=== PATIENT | female | born 1930 | race Caucasian/White ===

== ENCOUNTER 2017-03-20 21:57 | Inpatient (IN) | payer MEDICARE, OTHER ==
[~2017-03-20] VITALS: Ht 154.9 cm; Wt 75.5 kg
[2017-03-20 22:03] VITALS: BP 177/114; PULSE 94; RESP 16; TEMP 97.5; O2SAT 95
[2017-03-20] MEDS ORDERED: WARF-23 PO (22:24)
[2017-03-20] MEDS ORDERED: METO50TA PO (22:24)
[2017-03-20] MEDS ORDERED: ASPI81CH CHEW (22:24)
[2017-03-20] MEDS ORDERED: FURO20TA PO (22:24)
[2017-03-20] MEDS ORDERED: LISI2.5T3 PO (22:24)
[2017-03-20] MEDS ORDERED: ATOR1TAB18 PO (22:24)
--- NOTE | 2017-03-20 22:53 | PD ---
HPI Chief Complaint: Lump, Cyst, Hernia Time Seen by Provider: 22:46 Travel History International Travel<30 days: No Contact w/Intl Traveler<30days: No Traveled to known affect area: No History of Present Illness HPI 86-year-old female presents to the emergency department by private transportation for complaint of left lower quadrant abdominal pain with lump. Patient has had one episode of vomiting. Patient seems to have nausea. Patient denies diarrhea. Patient recently on oral antibiotic for cyst behind her knee 3 weeks ago. Patient denies hematochezia. No bilious emesis coffee- ground emesis or hematemesis. Patient denies fever or chills. Patient's had normal urine output. Patient states noted lump since partially 3:15 PM today with persistent pain. No prior history of hernia. No recent injury or fall or strain. Patient rates pain as 9/10 in intensity. Prior appendectomy, CAD, SC, stent placement, hypertension, dyslipidemia, atrial fibrillation on warfarin therapy. Last dose of Coumadin therapy at 3 PM today as well as last food or oral intake around 3 PM today. PFSH Past Medical History Narrative Medical appendectomy, CAD, SC, stent placement, hypertension, dyslipidemia, atrial fibrillation on warfarin therapy. No tobacco use no alcohol use. Nursing notes reviewed Hx Anticoagulant Therapy: Yes Atrial Fibrillation: Yes Cardiovascular Problems: Yes (Afib, SC) High Cholesterol: Yes Diminished Hearing: No Hypertension: Yes Myocardial Infarction: Yes Tetanus Vaccination: Unknown Influenza Vaccination: No ?: Not Past Surgical History Appendectomy: Yes Cardiac Surgery: Yes (Stents) Other Surgery: Yes (ulcer) Social History Alcohol Use: No Tobacco Use: No Substance Use: No Allergies-Medications (Allergen,Severity, Reaction): Coded Allergies: No Known Allergies (Unverified , 03/20/17) Reported Meds & Prescriptions Reported Meds & Active Scripts Active Reported Metoprolol Tartrate 50 Mg Tab 50 Mg PO BID Warfarin 5 Mg Tab 5 Mg PO DAILY Furosemide 20 Mg Tab 20 Mg PO DAILY Lisinopril 2.5 Mg Tab 2.5 Mg PO DAILY Aspirin 81 Mg Chew 81 Mg CHEW DAILY Atorvastatin (Atorvastatin Calcium) 80 Mg Tab 80 Mg PO HS Review of Systems Except as stated in HPI: all other systems reviewed are Neg General / Constitutional: No: Fever, Chills HENT: No: Congestion Cardiovascular: No: Chest Pain or Discomfort Respiratory: No: Shortness of Breath Gastrointestinal: Positive: Nausea, Vomiting (x1), Abdominal Pain Genitourinary: No: Dysuria, Flank Pain Musculoskeletal: No: Myalgias, Arthralgias Skin: No Rash Neurologic: No: Weakness Psychiatric: No: Anxiety Endocrine: No: Heat Intolerance Hematologic/Lymphatic: No: Easy Bruising Physical Exam Narrative GENERAL: Well-developed elderly female in no acute distress no respiratory distress SKIN: Warm and dry. HEAD: Normocephalic. EYES: No scleral icterus. No injection or drainage. NECK: Supple, trachea midline. No JVD or lymphadenopathy. CARDIOVASCULAR: Regular rate and rhythm without murmurs, gallops, or rubs. RESPIRATORY: Breath sounds equal bilaterally. No accessory muscle use. GASTROINTESTINAL: Abdomen soft, tender left lower quadrant with palpable non- fixed mass, nondistended. MUSCULOSKELETAL: No cyanosis, or edema. BACK: Nontender without obvious deformity. No CVA tenderness. Data Data Last Documented VS Vital Signs Date Time Temp Pulse Resp B/P Pulse Ox O2 Delivery O2 Flow Rate FiO2 03/21/17 02:20 77 16 160/91 97 Nasal Cannula 2 03/20/17 22:03 97.5 Orders Complete Blood Count With Diff (03/20/17 22:46) Comprehensive Metabolic Panel (03/20/17 22:46) Lipase (03/20/17 22:46) Prothrombin Time / Inr (Pt) (03/20/17 22:46) Urinalysis - C+S If Indicated (03/20/17 22:46) Ct Abd/Pel W Iv Contrast(Rout) (03/20/17 22:46) Iv Access Insert/Monitor (03/20/17 22:46) Ecg Monitoring (03/20/17 22:46) Oximetry (03/20/17 22:46) Ondansetron Inj (Zofran Inj) (03/20/17 23:00) Sodium Chloride 0.9% Flush (Ns Flush) (03/20/17 23:00) Electrocardiogram (03/20/17 22:46) Chest, Single Ap (03/20/17 22:46) Morphine Inj (Morphine Inj) (03/20/17 23:00) Ice/Cold Pack (03/20/17 22:46) Iohexol 350 Inj (Omnipaque 350 Inj) (03/21/17 00:24) NPO (03/21/17 00:52) Type And Screen (03/21/17 00:53) Fresh Frozen Plasma (Ffp) (03/21/17 00:53) Blood Product Administration .UPON TRANSFUSION (03/21/17 00:53) Sodium Chlor 0.9% 250 Ml Inj (Ns 250 Ml (03/21/17 01:00) Lorazepam Inj (Ativan Inj) (03/21/17 01:45) Labs Laboratory Tests Test 03/20/17 03/21/17 03/21/17 23:08 01:10 01:35 White Blood Count 9.1 TH/MM3 Red Blood Count 4.32 MIL/MM3 Hemoglobin 12.5 GM/DL Hematocrit 36.8 % Mean Corpuscular Volume 85.2 FL Mean Corpuscular Hemoglobin 28.9 PG Mean Corpuscular Hemoglobin 33.9 % Concent Red Cell Distribution Width 15.7 % Platelet Count 251 TH/MM3 Mean Platelet Volume 7.6 FL Neutrophils (%) (Auto) 78.2 % Lymphocytes (%) (Auto) 15.7 % Monocytes (%) (Auto) 4.6 % Eosinophils (%) (Auto) 0.7 % Basophils (%) (Auto) 0.8 % Neutrophils # (Auto) 7.1 TH/MM3 Lymphocytes # (Auto) 1.4 TH/MM3 Monocytes # (Auto) 0.4 TH/MM3 Eosinophils # (Auto) 0.1 TH/MM3 Basophils # (Auto) 0.1 TH/MM3 CBC Comment DIFF FINAL Differential Comment Prothrombin Time 23.7 SEC Prothromb Time International 2.1 RATIO Ratio Sodium Level 141 MEQ/L Potassium Level 4.7 MEQ/L Chloride Level 108 MEQ/L Carbon Dioxide Level 23.5 MEQ/L Anion Gap 10 MEQ/L Blood Urea Nitrogen 27 MG/DL Creatinine 0.84 MG/DL Estimat Glomerular Filtration 64 ML/MIN Rate Random Glucose 171 MG/DL Calcium Level 9.0 MG/DL Total Bilirubin 0.9 MG/DL Aspartate Amino Transf 21 U/L (AST/SGOT) Alanine Aminotransferase 32 U/L (ALT/SGPT) Alkaline Phosphatase 126 U/L Total Protein 7.2 GM/DL Albumin 3.7 GM/DL Lipase 64 U/L Blood Type O POSITIVE O POSITIVE Antibody Screen NEGATIVE Blood Bank Comment MDM Medical Decision Making Medical Screen Exam Complete: Yes Emergency Medical Condition: Yes Medical Record Reviewed: Yes Interpretation(s) EKG: Atrial fibrillation rate [address] elevation or injury pattern change noted nonspecific ST-T wave changes noted Last Impressions Chest X-Ray 03/20/172245 Signed Impressions: Service Date/Time: Monday, March 20, 2017 23:10 - CONCLUSION: Mild compensated cardiomegaly and mild, chronic appearing interstitial lung disease. Umair Lama MD Abdomen/Pelvis CT 03/20/172245 Signed Impressions: Service Date/Time: February 00:04 - CONCLUSION: 1. Left inguinal hernia containing a short segment of small bowel and with associated acute obstruction. 2. Trace mesenteric edema/ascites, presumably reactive. 3. Fatty liver. 4. Panchamber enlargement of the heart. 5. Small pleural effusion of the visualized right lung base of uncertain age and etiology. 6. 2 cm benign cyst of the left kidney. Umair Lama MD CBC & BMP Diagram 03/20/17 23:08 Vital Signs Date Time Temp Pulse Resp B/P Pulse Ox O2 Delivery O2 Flow Rate FiO2 03/21/17 00:24 95 17 164/97 95 Nasal Cannula 2 03/20/17 23:34 94 Room Air 03/20/17 23:25 94 20 174/98 89 Room Air 03/20/17 22:03 97.5 94 16 177/114 95 Differential Diagnosis Abdominal pain, hernia, hematoma, abscess, diverticulitis, UTI Narrative Course Patient placed on cardiac monitor technician IV access obtained specimens collected and sent for resulting patient administered Zofran 4 mg IV and morphine sulfate 3 mg IV ice pack applied to the area of soft tissue swelling Specimens collected and sent for resulting Attempt at reducing mass consistent with left inguinal hernia unsuccessful patient placed in Trendelenburg ice pack applied and again after pain medication gentle steady pressure applied to try to reduce the hernia; this procedure was also tried by colleague physician without success. CT abd/pel resulted and identified to be consistent with short segment of small bowel in the left inguinal hernia with surrounding soft tissue stranding consistent with edema acute obstruction; call placed to general surgeon regarding incarcerated left inguinal hernia; INR is therapeutic at 2.1 consistent with patient being Coumadin therapy; FFP ordered. Call placed to Gen surgeon -- re: incarcerated L inguinal hernia no transfer at this time to be notified once patient has received ordered FFP Patient administered Ativan 0.5 mg IV It is 3:15 AM and FFP has arrived from [facility] Physician Communication Physician Communication @ 1:[address] Shepherd--recall once FFP infused Diagnosis Primary Impression: Incarcerated left inguinal hernia Additional Impressions: Atrial fibrillation, chronic History of Coumadin therapy Admitting Information Admitting Physician Requests: Admit Zoila Miles MD Mar 20, 2017 22:52
[2017-03-20] MEDS ORDERED: ONDANSETRON HCL 4 MG/2 ML VIAL IVP ONE (23:00)
[2017-03-20] MEDS ORDERED: MORPHINE SULFATE 4 MG/ML INJ IV PUSH ONE (23:00)
[2017-03-20] MEDS ORDERED: SODIUM CHLORIDE 0.9% FLUSH 10 ML FLUSH IV FLUSH PRN (23:00)
[2017-03-20 23:16] LABS: AUTOMATED NEUTROPHIL # 7.1 TH/MM3 (1.8-7.7); BASOPHIL # 0.1 TH/MM3 (0-0.2); BASOPHIL % 0.8 % (0.0-2.0); EOSINOPHIL # 0.1 TH/MM3 (0-0.4); EOSINOPHIL % 0.7 % (0.0-4.0); HEMATOCRIT 36.8 % (35.0-46.0); LYMPH % 15.7 % (9.0-44.0); LYMPHOCYTE # 1.4 TH/MM3 (1.0-4.8); MEAN CELL VOLUME 85.2 FL (80.0-100.0); MEAN CORPUSCULAR HEMOGLOBIN 28.9 PG (27.0-34.0); MEAN CORPUSCULAR HGB CONC 33.9 % (32.0-36.0); MONO % 4.6 % (0.0-8.0); NEUT % 78.2 % (16.0-70.0); PLATELET COUNT 251 TH/MM3 (150-450); RED BLOOD COUNT 4.32 MIL/MM3 (4.00-5.30); RED CELL DISTRIBUTION WIDTH 15.7 % (11.6-17.2); WHITE BLOOD COUNT 9.1 TH/MM3 (4.0-11.0)
--- NOTE | 2017-03-20 23:17 | RADRPT ---
EXAM DATE/TIME: 03/20/2017 23:10 [facility] COMPARISON: No previous studies available for comparison. INDICATIONS : Short of breath. MEDICAL HISTORY : None. SURGICAL HISTORY : None. ENCOUNTER: Initial ACUITY: 1 day PAIN SCORE: 0/10 LOCATION: Bilateral chest FINDINGS: Mild, basilar predominant interstitial changes seen of both lungs, mainly appearing chronic. No acute pulmonary edema seen. No perceptible pleural effusion. No pneumothorax. There is mild cardiomegaly. CONCLUSION: Mild compensated cardiomegaly and mild, chronic appearing interstitial lung disease. Umair Lama MD on March 20, 2017 at 23:14 Board Certified Radiologist. This report was verified electronically.
[2017-03-20 23:23] LABS: CHLORIDE 108 MEQ/L (98-107); POTASSIUM 4.7 MEQ/L (3.5-5.1); SODIUM (NA) 141 MEQ/L (136-145)
[2017-03-20 23:24] LABS: HEMO FLAGS DIFF FINAL
[2017-03-20 23:25] VITALS: BP 174/98; PULSE 94; RESP 20; O2SAT 89
[2017-03-20 23:27] LABS: ANION GAP 10 MEQ/L (5-15); BICARBONATE 23.5 MEQ/L (21.0-32.0); BLOOD UREA NITROGEN 27 MG/DL (7-18); INTERNATIONAL NORMALIZED RATIO 2.1 RATIO; PROTHROMBIN TIME - PATIENT 23.7 SEC (9.8-11.6)
[2017-03-20 23:30] LABS: ALT (GPT) 32 U/L (10-53); AST (GOT) 21 U/L (15-37); GLOMERULAR FILTRATION RATE 64 ML/MIN (>89)
[2017-03-20 23:31] LABS: TOTAL BILIRUBIN ADULT 0.9 MG/DL (0.2-1.0)
[2017-03-20 23:33] LABS: ALKALINE PHOSPHATASE 126 U/L (45-117)
[2017-03-20 23:34] VITALS: O2SAT 94
[2017-03-21] VITALS (16 sets, daily range): BP systolic 108–170; BP diastolic 61–106; PULSE 63–95; RESP 16–18; TEMP 95.5–97.8; O2SAT 94–99
[2017-03-21] MEDS ORDERED: IOHEXOL 350 MG/ML 10 ML VIAL (for RAD DIAG) IV ONE (00:24)
--- NOTE | 2017-03-21 00:41 | RADRPT ---
EXAM DATE/TIME: 03/21/2017 00:04 [facility] COMPARISON: No previous studies available for comparison. INDICATIONS : Lower left abdomen pain with lump IV CONTRAST: 100 cc Omnipaque 350 (iohexol) IV ORAL CONTRAST: No oral contrast ingested. RADIATION DOSE: 17.83 CTDIvol (mGy) MEDICAL HISTORY : Hypertension. Myocardial infarction. SURGICAL HISTORY : Appendectomy. Hip sx. ENCOUNTER: Initial ACUITY: 1 day PAIN SCALE: 5/10 LOCATION: Left lower quadrant abdomen TECHNIQUE: Volumetric scanning of the abdomen and pelvis was performed. Using automated exposure control and ad justment of the mA and/or kV according to patient size, radiation dose was kept as low as reasonably achievable to obtain optimal diagnostic quality images. FINDINGS: There is a left inguinal hernia containing small bowel, probably at the level of the distal jejunum o r proximal ileum. There are loops of distended small bowel up stream of the hernia. Mild mesenteric e carrie/trace ascites. Liver is fatty infiltrated. No focal hepatic lesion. Spleen, pancreas and adrenal glands are normal. Right kidney is normal. Left kidney has a 2 cm cyst of the lower pole. Panchamber enlargement seen of the visualized heart. There is a small pleural effusion of the visuali zed right lung base. CONCLUSION: 1. Left inguinal hernia containing a short segment of small bowel and with associated acute obstructi on. 2. Trace mesenteric edema/ascites, presumably reactive. 3. Fatty liver. 4. Panchamber enlargement of the heart. 5. Small pleural effusion of the visualized right lung base of uncertain age and etiology. 6. 2 cm benign cyst of the left kidney. Umair Lama MD on March 21, 2017 at 0:36 Board Certified Radiologist. This report was verified electronically.
[2017-03-21] MEDS ORDERED: SODIUM CHLOR 0.9% 250 ML INJ 250 ML IV ONE (01:00)
[2017-03-21] MEDS ORDERED: LORazepam 2 MG/ML VIAL IV PUSH ONE (01:45)
[2017-03-21] MEDS ORDERED: SODIUM CHLORIDE 0.9% FLUSH 10 ML FLUSH IVF PRN (04:45)
[2017-03-21] MEDS ORDERED: ceFAZolin 2 GM PREMIX 50 ML IV PRN (05:15)
[2017-03-21] MEDS ORDERED: METRONIDAZOLE 500 MG/100 ML ISONTONIC SOLN IV PRN (05:15)
[2017-03-21 05:33] LABS: GLUCOSE,URINE NEG (NEG); KETONE, URINE NEG (NEG); NITRITE,URINE NEG (NEG)
[2017-03-21 05:47] LABS: BLOOD, URINE MOD (NEG)
[2017-03-21 05:48] LABS: SQUAMOUS EPITHELIAL CELL URINE 0-5 /hpf (0-5); URINE COLOR YELLOW (YELLW/STRAW)
[2017-03-21 05:49] LABS: COMMENT (UR) CULT NOT INDICATED; CULTURE IF INDICATED CULT NOT INDICATED
[2017-03-21] MEDS ORDERED: BUPIVACAINE HCL PF 0.25% 10 ML VIAL INFIL ONE (07:55)
[2017-03-21] MEDS ORDERED: LIDOCAINE 1%/EPINEPHrine 1:100,000 SOLN 20 ML VIAL ONE (08:03)
[2017-03-21] MEDS ORDERED: BUPIVACAINE/EPINEPHRINE 0.5% PF 30 ML VIAL ONE (08:05)
--- NOTE | 2017-03-21 08:46 | PD.OP ---
Operative Report Date of Surgery: Mar 21, 2017 Preoperative Diagnosis: incarcerated LIH, cutaneous horn LUE Postoperative Diagnosis: same Procedure: open repair incarcerated LIH , Vi repair. Excision cutaneous horn LUE 1cm diameter, single layer closure. Anesthesia: general Surgeon: Yury Shepherd Closing Specialist(s): Tori Bill Operation and Findings: incarcerated contents reduced after general anesthesia induced. Suture repair LIH performed. Cutaneous horn excised and sent to path. EBL less than 10 ml. Yury Shepherd MD Mar 21, 2017 08:46
[2017-03-21] MEDS ORDERED: MORPHINE SULFATE 8 MG/ML INJ IV PUSH PRN (09:00)
[2017-03-21] MEDS ORDERED: SODIUM CHLORIDE 0.9% FLUSH 10 ML FLUSH IV FLUSH PRN (09:00)
[2017-03-21] MEDS: DOCUSATE SODIUM 100 MG CAP PO SCH ×2 (09:00→10:34)
[2017-03-21] MEDS ORDERED: Post-op Orders (for Pharmacy) MISC XX ONE (09:00)
[2017-03-21] MEDS ORDERED: SODIUM CHLORIDE 0.9% FLUSH 10 ML FLUSH IV FLUSH SCH (09:00)
[2017-03-21] MEDS: LACTATED RINGER'S 1000 ML INJ 1,000 ML IV SCH ×2 (09:15→20:49)
[2017-03-21] MEDS: ACETAMINOPHEN 1000 MG/100 ML VIAL IV SCH ×3 (09:15→21:28)
[2017-03-21] MEDS ORDERED: PILL SPLITTER OTHER PRN (09:15)
--- NOTE | 2017-03-21 09:30 | MH ---
cc: REMA SHARMA M.D. DATE OF ADMISSION 03/21/2017 ADMITTING DIAGNOSIS 1. Incarcerated left inguinal hernia 2. Atrial fibrillation on anticoagulation 3. History of myocardial infarction. 4. Hypertension 5. Dyslipidemia 6. History of cardiac stents. 7. History of previous gastric ulcer surgery. 8. History of left hip fracture surgery. 9. History of right shoulder fracture surgery. BRIEF HISTORY This is an 86-year-old woman who developed abdominal pain in the lower abdomen after eating lunch yesterday. She laid down to see if we would resolve, it did not. She had no known prior history of hernia. She had had normal bowel and bladder function prior to this. She did develop nausea and one episode of emesis. There was no blood in the emesis. She present to the emergency department at [facility] [place] [facility]. She underwent evaluation and was found to have an incarcerated left inguinal hernia. Attempts to reduce were unsuccessful. Surgical intervention was required. The OR determined the best place for her to be was at [facility]. She was transported there for emergency surgery. She had incidentally discovered a left upper extremity cutaneous horn, she requested excision if there was no contraindication. She received 2 units of fresh frozen plasma prior to transport due to the INR of 2.1. ALLERGIES She denies any known drug allergies. PAST MEDICAL HISTORY Her medical history is significant for: 1. A history of coronary artery disease with OK in May of last year. 2. Stent placement 3. Hypertension 4. Dyslipidemia 5. Atrial fibrillation on Coumadin. 6. She has had previous gastric ulcer surgery many years ago. 7. She had appendectomy many years ago as well. 8. She has had left hip fracture surgery. 9. She has had right shoulder fracture surgery. 10. She was recently hospitalized three weeks ago up in [place], [place] due to her inability to walk. 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 SOCIAL HISTORY She is a nonsmoker. She had a history of a casual alcohol use. No abuse. She did receive blood transfusion when she had her gastric ulcer that was many years ago. She denies HIV or hepatitis risk factors otherwise. FAMILY HISTORY Significant for heart disease. She does have a son who had hernia surgery. MEDICATIONS Routine medications include: 1. Metoprolol 2. Warfarin 3. Lasix 4. Lisinopril 5. Aspirin 6. Atorvastatin REVIEW OF SYSTEMS She has fragile skin and bruises easily. She denies primary lung disorders. No asthma, bronchitis, or pneumonia. She does not have a house steward/stewardess here locally. She has one up in [place]. She denies known liver, kidney or female organ disorders. She denies a history of strokes or seizures, diabetes or thyroid gland problems. She was told she might have diabetes before her hip surgery, but she was tested with a hemoglobin A1c and that was negative. She does take Coumadin. PHYSICAL EXAM This is an elderly woman who was pleasant and cooperative with the exam. She is not in any extremis. VITAL SIGNS: Temperature is 97.8, pulse 81, respiratory rate 18, blood pressure 170/96, O2 sat 98% on two liters nasal cannula. HEENT: She is normocephalic, atraumatic. Pupils were 2, sluggishly reactive to light. They were round. Sclerae were anicteric. Oropharynx shows she is edentulous. She has no obvious oral mucosal lesions. NECK: Her neck is supple without adenopathy. She has a midline trachea. No jugular venous distension. CARDIAC: She has a loud systolic ejection murmur, probably 4-5/6 extends up in the left carotid. I do not believe there are primary carotid bruits. She has no cervical or supraclavicular lymphadenopathy. She has no thyromegaly. LUNGS: Lung sounds are clear and equal anteriorly bilaterally. BREASTS, GENITAL AND RECTAL: Exams are deferred. ABDOMEN: Thin and soft. She has an upper healed midline incision. She has a right lower quadrant obliquely oriented incision from appendectomy. She has a palpable tender mass without overlying skin changes. No erythema or induration in the left groin. It was nonreducible due to tenderness. EXTREMITIES: Her extremities show some mild edema in the lower extremities. She has got equal radial and dorsalis pedis pulses. She has chronic nail changes consistent with fungal nail chronic infections. She has about a 1 cm cutaneous horn left upper extremity laterally on the upper arm on the left. It is not acutely inflamed or infected. NEUROLOGIC: She is awake, alert and oriented. She has equal bilateral land conservation specialist strength and no gross motor or sensory deficit. LABORATORY DATA Her labs demonstrated a hemoglobin of 12.5, platelet count of 251. Her INR was 2.1. Potassium was 47, creatinine was 0.84, lipase was 64, albumin was 3.7. Urinalysis showed 20-24 red cells, culture was not indicated. Chest x-ray demonstrated mild compensated cardiomegaly, mild chronic appearing interstitial lung disease. CT scan of the abdomen and pelvis demonstrated a left inguinal hernia with a short segment of small bowel and associated acute obstruction. There is trace mesenteric edema and ascites presumably reactive. A fatty liver a younger chamber enlargement of the heart, small right-sided pleural effusion, 2 cm benign cyst in the left kidney. ASSESSMENT This is an 86-year-old woman with multiple medical problems anticoagulated on Coumadin who presents with incarcerated left inguinal hernia and small bowel obstruction. Recommendations were made for surgical intervention. PLAN Via an open approach, due to the length of time, if the small bowel is within the defect, it is unlikely we would use mesh. She has a cutaneous horn she would like excised. I told her if there are no complications associated with the hernia repair and she is stable, we could provide that surgical treatment. She understands the risks of bleeding, infection, injury to intra-abdominal contents including the hernia contents, recurrence of the hernia, injury to nerves, postoperative pain, DVT, pulmonary embolus, OK, stroke, pulmonary complications associated with surgery, as well as wound complications. She wishes to proceed. MD CLAUDIA Larsen/JUHI /8:59 AM /9:19 AM
[2017-03-21] MEDS ORDERED: DO NOT ADM ANY ANTICOAGULANT DRUGS PRN (09:45)
[2017-03-21] MEDS: FUROSEMIDE 20 MG TAB PO SCH (10:35)
[2017-03-21] MEDS: METOPROLOL TARTRATE 50 MG TAB PO SCH ×2 (10:35→21:27)
[2017-03-21] MEDS: ASPIRIN 81 MG CHEW TAB CHEW SCH (10:35)
[2017-03-21] MEDS: SODIUM CHLORIDE 0.9% FLUSH 10 ML FLUSH IV FLUSH SCH ×2 (10:35→21:00)
[2017-03-21] MEDS: LISINOPRIL 5 MG TAB PO SCH (10:41)
[2017-03-21] MEDS ORDERED: PROPOFOL 200 MG/20 ML AMP IV ONE (12:00)
[2017-03-21] MEDS ORDERED: KETAMINE HCL 500 MG/5 ML VIAL IV ONE (12:00)
[2017-03-21] MEDS ORDERED: PHENYLEPH/NS 1000 MCG/10 ML SYR IV ONE (12:00)
[2017-03-21] MEDS ORDERED: LACTATED RINGER'S 1000 ML INJ 1,000 ML IV ONE (12:00)
[2017-03-21] MEDS ORDERED: NEOSTIGMINE 3 MG/3 ML SYR IV ONE (12:00)
[2017-03-21] MEDS ORDERED: SODIUM CHLORID 0.9% 500 ML INJ 500 ML IV ONE (12:00)
[2017-03-21] MEDS ORDERED: ONDANSETRON HCL 4 MG/2 ML VIAL IV PUSH ONE (12:00)
[2017-03-21] MEDS ORDERED: NORMOSOL R INJ 1,000 ML IV ONE (12:00)
--- NOTE | 2017-03-21 13:43 | EKG ---
Date Performed: 03/20/2017 Time Performed: 22:58:08 PTAGE: 86 years EKG: ATRIAL FIBRILLATION NONSPECIFIC ST & T-WAVE ABNORMALITY ABNORMAL ECG NO PREVIOUS TRACING DOCTOR: Tori Rivera Interpretating Date/Time 03/21/2017 13:42:09
[2017-03-21] MEDS: WARFARIN SOD 5 MG TAB PO SCH (15:47)
[2017-03-21] MEDS: ATORVASTATIN 80 MG TAB PO SCH (21:27)
[2017-03-22] VITALS (7 sets, daily range): BP systolic 107–135; BP diastolic 56–82; PULSE 67–77; RESP 15–18; TEMP 95.7–97.2; O2SAT 92–95
[2017-03-22] MEDS: ONDANSETRON HCL 4 MG/2 ML VIAL IV PRN ×2 (03:56→08:33)
[2017-03-22] MEDS: ACETAMINOPHEN 1000 MG/100 ML VIAL IV SCH ×4 (03:59→21:49)
[2017-03-22 07:37] LABS: AUTOMATED NEUTROPHIL # 5.5 TH/MM3 (1.8-7.7); BASOPHIL % 0.6 % (0.0-2.0); EOSINOPHIL # 0.1 TH/MM3 (0-0.4); EOSINOPHIL % 1.9 % (0.0-4.0); HEMATOCRIT 33.2 % (35.0-46.0); HEMO FLAGS DIFF FINAL; LYMPHOCYTE # 0.9 TH/MM3 (1.0-4.8); MEAN CELL VOLUME 86.7 FL (80.0-100.0); MEAN CORPUSCULAR HEMOGLOBIN 28.5 PG (27.0-34.0); MEAN CORPUSCULAR HGB CONC 32.9 % (32.0-36.0); MONO % 8.3 % (0.0-8.0); NEUT % 77.2 % (16.0-70.0); PLATELET COUNT 215 TH/MM3 (150-450); RED BLOOD COUNT 3.83 MIL/MM3 (4.00-5.30); RED CELL DISTRIBUTION WIDTH 16.9 % (11.6-17.2); WHITE BLOOD COUNT 7.1 TH/MM3 (4.0-11.0)
[2017-03-22] MEDS ORDERED: ENOXAPARIN SODIUM 40 MG/0.4 ML SYRINGE SQ SCH (08:00)
[2017-03-22] MEDS: FUROSEMIDE 20 MG TAB PO SCH (08:32)
[2017-03-22] MEDS: METOPROLOL TARTRATE 50 MG TAB PO SCH ×2 (08:32→21:48)
[2017-03-22] MEDS: LISINOPRIL 5 MG TAB PO SCH (08:32)
[2017-03-22] MEDS: DOCUSATE SODIUM 100 MG CAP PO SCH ×2 (08:32→21:49)
[2017-03-22] MEDS: ASPIRIN 81 MG CHEW TAB CHEW SCH (08:32)
[2017-03-22] MEDS: SODIUM CHLORIDE 0.9% FLUSH 10 ML FLUSH IV FLUSH SCH ×2 (08:33→21:49)
[2017-03-22] MEDS: LACTATED RINGER'S 1000 ML INJ 1,000 ML IV SCH ×2 (08:39→20:55)
--- NOTE | 2017-03-22 10:34 | MP ---
cc: REMA SHARMA M.D. DATE OF SURGERY: 03/21/2017 PREOPERATIVE DIAGNOSIS 1. Incarcerated left inguinal hernia. 2. Cutaneous horn left upper extremity. POSTOPERATIVE DIAGNOSES 3. Incarcerated left inguinal hernia. 4. Cutaneous horn left upper extremity. PROCEDURE 1. Open repair incarcerated left inguinal hernia with Jackson repair. 2. Excision cutaneous horn left upper extremity, 1 cm diameter with single layer closure. SURGEON Dr. Rema Sharma ANESTHESIA General endotracheal. INDICATIONS This is an 86-year-old woman with a history of atrial fibrillation, history of myocardial infarction, who developed acute onset of lower abdominal pain after eating lunch yesterday. She tried to lie down and it did not resolve. She continued to have severe abdominal discomfort associated with nausea and emesis x1. There was no hematemesis. She had previous normal bowel and bladder function. She has had no prior known history of inguinal hernia. She went for evaluation was found to have a palpable mass in the left groin that was nonreducible. CT showed a loop of intestine within the mass consistent with inguinal hernia incarceration. The patient was on Coumadin with an INR of 2.1. She was given two units of fresh frozen plasma and transported from [place] to the [facility] for surgical intervention. She has an incidentally discovered cutaneous horn in the left upper extremity and she desired excision. DESCRIPTION OF PROCEDURE IN DETAIL The patient was identified as Isidra Collazo, taken to the operating room and placed in supine position. Sequential compression devices were placed on bilateral lower extremities. Following induction of adequate general endotracheal anesthesia the patient's left groin was prepped and draped in the usual sterile fashion with Betadine. A timeout procedure was performed. Following completion of the timeout procedure to everyone's satisfaction within the room, the proposed left groin incision was made with a marking pen. The incarcerated contents after induction had been manually reduced easily. There was no overlying skin erythema or induration. Local anesthetic was placed in the left groin, incision was carried out with a scalpel and hemostasis controlled with electrocautery. Dissection continued posteriorly through Halle's fascia to the level of the external oblique fascia. More local anesthetic was placed beneath the external oblique fascial fibers. There were opened in their direction. The underlying iliohypogastric nerve was reflected superiorly and avoided. The contents which were protruding through the internal inguinal ring were primarily fatty contents. There were no loops of intestine present. These were able to be mobilized from surrounding tissues in the inguinal canal and reduced. The Sarbjit's ligament was uncovered and the shelving edge of the inguinal ligament and the internal oblique fascia were uncovered. Using interrupted 0 Ethibond sutures a modified Jackson procedure was performed suturing conjoined tendon of the internal oblique fascia down to Sarbjit's ligament inferiorly and medially and the shelving edge of the inguinal ligament inferiorly and laterally. This created a beautiful repair with only a small amount of tension. Local anesthetic was placed within the wound and around the reflected nerve which was returned to its normal anatomic position. The external oblique fascia was closed with running 2-0 Vicryl suture. 2-0 Vicryl was placed in Halle's fascia and the skin was approximated with a running 4-0 Monocryl subcuticular suture. Dressings were applied with Mastisol, half-inch brown Steri-Strips, gauze and Tegaderm. Attention was then turned to the left upper extremity. The area of the cutaneous horn was prepped with Betadine spray and draped in a sterile fashion. Local anesthetic was placed beneath the cutaneous horn which was excised using an elliptical incision. It was passed off the field for pathologic evaluation. Small bleeding points were controlled with electrocautery. Once the wound was ensured to be dry it was closed with interrupted inverted 4-0 Monocryl subcuticular sutures and dressed with Mastisol and half-inch brown Steri-Strips. A dressing with Tegaderm and Telfa pad were applied. The patient tolerated the procedures without apparent complication. Sponge, needle and instrument counts were correct at the end of the case. MD CLAUDIA Larsen/PRAKASH /8:47 AM /10:25 AM
[2017-03-22] MEDS ORDERED: HYDR-3516 PO (12:08)
--- NOTE | 2017-03-22 13:34 | HHI.PR ---
Subjective Subjective Notes DAILY PROGRESS NOTE FOR SURGICAL ATTENDING, DR. TERRENCE CRAIN Up to chair Pain controlled Objective Vitals/I&O Vital Signs Date Time Temp Pulse Resp B/P Pulse Ox O2 Delivery O2 Flow Rate FiO2 03/22/17 10:57 18 03/22/17 10:10 95 03/22/17 07:49 97.2 75 122/82 03/21/17 20:51 21 03/21/17 09:40 Nasal Cannula 2 Labs Laboratory Tests Test 03/22/17 06:48 White Blood Count 7.1 Red Blood Count 3.83 Hemoglobin 10.9 Hematocrit 33.2 Mean Corpuscular Volume 86.7 Mean Corpuscular Hemoglobin 28.5 Mean Corpuscular Hemoglobin 32.9 Concent Red Cell Distribution Width 16.9 Platelet Count 215 Mean Platelet Volume 8.3 Neutrophils (%) (Auto) 77.2 Lymphocytes (%) (Auto) 12.0 Monocytes (%) (Auto) 8.3 Eosinophils (%) (Auto) 1.9 Basophils (%) (Auto) 0.6 Neutrophils # (Auto) 5.5 Lymphocytes # (Auto) 0.9 Monocytes # (Auto) 0.6 Eosinophils # (Auto) 0.1 Basophils # (Auto) 0.0 CBC Comment DIFF FINAL Differential Comment Sodium Level 142 Potassium Level 4.0 Chloride Level 108 Carbon Dioxide Level 27.0 Anion Gap 7 Blood Urea Nitrogen 17 Creatinine 0.62 Estimat Glomerular Filtration 91 Rate Random Glucose 143 Calcium Level 8.5 Date/Time Procedure Status Source Growth 03/21/17 05:44 Aerobic Blood Culture - Preliminary Resulted Blood Peripheral NO GROWTH IN 1 DAY 03/21/17 05:44 Anaerobic Blood Culture - Preliminary Resulted Blood Peripheral NO GROWTH IN 1 DAY Radiology Last Impressions Chest X-Ray 03/20/172245 Signed Impressions: Service Date/Time: Monday, March 20, 2017 23:10 - CONCLUSION: Mild compensated cardiomegaly and mild, chronic appearing interstitial lung disease. Umair Lama MD Abdomen/Pelvis CT 03/20/172245 Signed Impressions: Service Date/Time: February 00:04 - CONCLUSION: 1. Left inguinal hernia containing a short segment of small bowel and with associated acute obstruction. 2. Trace mesenteric edema/ascites, presumably reactive. 3. Fatty liver. 4. Panchamber enlargement of the heart. 5. Small pleural effusion of the visualized right lung base of uncertain age and etiology. 6. 2 cm benign cyst of the left kidney. Umair Lama MD Cardiovascular: Regular Lungs: Clear Abdomen: Non-distended, Non-tender, Other (see below ) Extremities: No edema Narrative Exam LEFT groin: dressing in place; c/d/i A/P Assessment and Plan 86 year old female POD1 incarcerated LIH repair -Advance diet -Home medications resumed -Pain controlled -OOB and ambulates -Plan for DC home Saturday; rx on chart Attending Statement NOTE FOR SURGICAL ATTENDING, DR. TERRENCE CRAIN I agree with above assessment and plan. The exam, history, and the medical decision-making described in the above note were completed with the assistance of the mid-level provider. I reviewed and agree with the findings presented. I attest that I had a [id number] encounter with the patient on the same day, and personally performed and documented my assessment and findings in the medical record. The following services were provided during this hospital visit: Chart data review, vital sign assessments/reviewing monitor data Review of consultations notes if present. Medication orders/review and/or management Ordering and/or reviewing lab tests Ordering and/or interpreting/reviewing x-rays and/or diagnostic studies Care of the patient and discussion of the patient with the care team Documentation time To help prompt me to consider important information that might be impacting today's encounter and assessment, information from prior notes written by myself or my colleagues may have been "brought forward/copy and pasted" into today's note. Juliette Gil Mar 22, 2017 13:34 Terrence Crain MD Mar 22, 2017 13:42
[2017-03-22] MEDS: WARFARIN SOD 5 MG TAB PO SCH (16:43)
[2017-03-22] MEDS: MAGNESIUM HYDROXIDE SUSP 30 ML CUP PO PRN (21:48)
[2017-03-22] MEDS: ATORVASTATIN 80 MG TAB PO SCH (21:49)
[2017-03-23] VITALS (7 sets, daily range): BP systolic 102–144; BP diastolic 63–80; PULSE 64–89; RESP 17–18; TEMP 95.5–96.7; O2SAT 92–95
[2017-03-23] MEDS: ACETAMINOPHEN 1000 MG/100 ML VIAL IV SCH ×4 (03:43→21:32)
[2017-03-23] MEDS: SODIUM CHLORIDE 0.9% FLUSH 10 ML FLUSH IV FLUSH SCH ×2 (08:39→20:00)
[2017-03-23] MEDS: ASPIRIN 81 MG CHEW TAB CHEW SCH (08:40)
[2017-03-23] MEDS: METOPROLOL TARTRATE 50 MG TAB PO SCH ×2 (08:40→19:59)
[2017-03-23] MEDS: DOCUSATE SODIUM 100 MG CAP PO SCH ×2 (08:40→20:00)
[2017-03-23] MEDS: FUROSEMIDE 20 MG TAB PO SCH (08:40)
[2017-03-23] MEDS: MAGNESIUM HYDROXIDE SUSP 30 ML CUP PO PRN (08:40)
[2017-03-23] MEDS: LISINOPRIL 5 MG TAB PO SCH (08:40)
[2017-03-23] MEDS: LACTATED RINGER'S 1000 ML INJ 1,000 ML IV SCH ×2 (08:58→20:01)
--- NOTE | 2017-03-23 12:18 | HHI.PR ---
Subjective Subjective Notes feels fine, passing flatus, no bm yet. almost ready to go home Objective Vitals/I&O Vital Signs Date Time Temp Pulse Resp B/P Pulse Ox O2 Delivery O2 Flow Rate FiO2 03/23/17 07:46 95.5 73 17 118/66 93 03/22/17 19:01 Room Air 03/21/17 20:51 21 03/21/17 09:40 2 Labs Date/Time Procedure Status Source Growth 03/21/17 05:44 Aerobic Blood Culture - Preliminary Resulted Blood Peripheral NO GROWTH IN 2 DAYS 03/21/17 05:44 Anaerobic Blood Culture - Preliminary Resulted Blood Peripheral NO GROWTH IN 2 DAYS Radiology Last Impressions Chest X-Ray 03/20/172245 Signed Impressions: Service Date/Time: Monday, March 20, 2017 23:10 - CONCLUSION: Mild compensated cardiomegaly and mild, chronic appearing interstitial lung disease. Umair Lama MD Abdomen/Pelvis CT 03/20/172245 Signed Impressions: Service Date/Time: February 00:04 - CONCLUSION: 1. Left inguinal hernia containing a short segment of small bowel and with associated acute obstruction. 2. Trace mesenteric edema/ascites, presumably reactive. 3. Fatty liver. 4. Panchamber enlargement of the heart. 5. Small pleural effusion of the visualized right lung base of uncertain age and etiology. 6. 2 cm benign cyst of the left kidney. Umair Lama MD Abdomen: Non-distended Wound Wound : Wound Location: Abdomen Appearance: Clean & Dry Dressing: Dry A/P Assessment and Plan s/p repair incarcerated LIH doing well awaiting bowel function - on laxatives home soon New Garcia MD Mar 23, 2017 12:18
[2017-03-23] MEDS: WARFARIN SOD 5 MG TAB PO SCH (16:17)
[2017-03-23] MEDS: ATORVASTATIN 80 MG TAB PO SCH (20:00)
[2017-03-23] MEDS: ACETAMINOPHEN/HYDROcodone 325 MG/5 MG TAB PO PRN (23:17)
[2017-03-24] VITALS (13 sets, daily range): BP systolic 94–142; BP diastolic 50–76; PULSE 70–102; RESP 17–20; TEMP 95.8–98.8; O2SAT 94–99
[2017-03-24] MEDS: ACETAMINOPHEN 1000 MG/100 ML VIAL IV SCH ×4 (03:40→22:00)
[2017-03-24] MEDS: MAGNESIUM HYDROXIDE SUSP 30 ML CUP PO PRN ×2 (08:44→20:38)
[2017-03-24] MEDS: FUROSEMIDE 20 MG TAB PO SCH (08:44)
[2017-03-24] MEDS: LISINOPRIL 5 MG TAB PO SCH (08:45)
[2017-03-24] MEDS: SODIUM CHLORIDE 0.9% FLUSH 10 ML FLUSH IV FLUSH SCH ×2 (08:45→20:38)
[2017-03-24] MEDS: DOCUSATE SODIUM 100 MG CAP PO SCH ×2 (08:45→20:38)
[2017-03-24] MEDS: METOPROLOL TARTRATE 50 MG TAB PO SCH (08:45)
[2017-03-24] MEDS: ASPIRIN 81 MG CHEW TAB CHEW SCH (08:45)
[2017-03-24] MEDS: LACTATED RINGER'S 1000 ML INJ 1,000 ML IV SCH ×2 (08:46→20:39)
[2017-03-24] MEDS: ACETAMINOPHEN/HYDROcodone 325 MG/5 MG TAB PO PRN ×2 (08:55→20:40)
--- NOTE | 2017-03-24 14:59 | HHI.PR ---
Subjective Subjective Notes feels well, no new c/o Objective Vitals/I&O Vital Signs Date Time Temp Pulse Resp B/P Pulse Ox O2 Delivery O2 Flow Rate FiO2 03/24/17 12:02 95.8 70 18 94/50 94 03/24/17 11:13 21 03/24/17 08:56 Room Air 03/21/17 09:40 2 Labs Date/Time Procedure Status Source Growth 03/21/17 05:44 Aerobic Blood Culture - Preliminary Resulted Blood Peripheral NO GROWTH IN 3 DAYS 03/21/17 05:44 Anaerobic Blood Culture - Preliminary Resulted Blood Peripheral NO GROWTH IN 3 DAYS Radiology Last Impressions Chest X-Ray 03/20/172245 Signed Impressions: Service Date/Time: Monday, March 20, 2017 23:10 - CONCLUSION: Mild compensated cardiomegaly and mild, chronic appearing interstitial lung disease. Umair Lama MD Abdomen/Pelvis CT 03/20/172245 Signed Impressions: Service Date/Time: February 00:04 - CONCLUSION: 1. Left inguinal hernia containing a short segment of small bowel and with associated acute obstruction. 2. Trace mesenteric edema/ascites, presumably reactive. 3. Fatty liver. 4. Panchamber enlargement of the heart. 5. Small pleural effusion of the visualized right lung base of uncertain age and etiology. 6. 2 cm benign cyst of the left kidney. Umair Lama MD Cardiovascular: Regular Lungs: Clear Abdomen: Non-distended, Post-op tenderness Extremities: Perfused Narrative Exam left inguinal area with moderate hematoma, non-tender, no skin necrosis or ischemia A/P Assessment and Plan 86yo female s/p L IH repair, stable. - left wound site hematoma slightly larger from yesterday per RN - check CBC, INR, hold Coumadin - hold off on DC and follow closely, may need reversal if INR is very high or hematoma increases Meño Bal MD Mar 24, 2017 14:59
[2017-03-24 15:46] LABS: AUTOMATED NEUTROPHIL # 3.7 TH/MM3 (1.8-7.7); BASOPHIL # 0.1 TH/MM3 (0-0.2); BASOPHIL % 0.8 % (0.0-2.0); EOSINOPHIL # 0.3 TH/MM3 (0-0.4); EOSINOPHIL % 4.4 % (0.0-4.0); HEMO FLAGS DIFF FINAL; LYMPH % 26.7 % (9.0-44.0); LYMPHOCYTE # 1.8 TH/MM3 (1.0-4.8); MEAN CELL VOLUME 86.6 FL (80.0-100.0); MEAN CORPUSCULAR HEMOGLOBIN 28.8 PG (27.0-34.0); MEAN CORPUSCULAR HGB CONC 33.3 % (32.0-36.0); MONO % 14.1 % (0.0-8.0); PLATELET COUNT 201 TH/MM3 (150-450); RED BLOOD COUNT 2.88 MIL/MM3 (4.00-5.30); RED CELL DISTRIBUTION WIDTH 16.9 % (11.6-17.2); WHITE BLOOD COUNT 6.9 TH/MM3 (4.0-11.0)
[2017-03-24 15:59] LABS: PROTHROMBIN TIME - PATIENT 76.2 SEC (9.8-11.6)
[2017-03-24] MEDS: WARFARIN SOD 5 MG TAB PO SCH (16:00)
[2017-03-24 16:07] LABS: INTERNATIONAL NORMALIZED RATIO 6.4 RATIO
[2017-03-24] MEDS: ATORVASTATIN 80 MG TAB PO SCH (20:38)
[2017-03-24] MEDS ORDERED: FUROSEMIDE 20 MG/2 ML VIAL IV PUSH PRN (23:15)
[2017-03-25] VITALS (15 sets, daily range): BP systolic 124–168; BP diastolic 60–90; PULSE 81–114; RESP 18–31; TEMP 98–98.8; O2SAT 95–99
[2017-03-25] MEDS: ACETAMINOPHEN 1000 MG/100 ML VIAL IV SCH ×4 (04:15→21:44)
[2017-03-25] MEDS: ACETAMINOPHEN/HYDROcodone 325 MG/5 MG TAB PO PRN (04:25)
[2017-03-25] MEDS: SODIUM CHLORIDE 0.9% FLUSH 10 ML FLUSH IV FLUSH SCH ×2 (07:05→21:45)
[2017-03-25] MEDS ORDERED: PHYTONADIONE 10 MG/ML VIAL SQ ONE (09:00)
[2017-03-25] MEDS: ASPIRIN 81 MG CHEW TAB CHEW SCH (09:00)
[2017-03-25] MEDS: LACTATED RINGER'S 1000 ML INJ 1,000 ML IV SCH ×2 (09:10→21:46)
[2017-03-25] MEDS: DOCUSATE SODIUM 100 MG CAP PO SCH ×2 (09:36→21:45)
[2017-03-25] MEDS ORDERED: ONDANSETRON HCL 4 MG/2 ML VIAL IV PUSH ONE (12:00)
[2017-03-25] MEDS ORDERED: PROPOFOL 200 MG/20 ML AMP IV ONE (12:00)
--- NOTE | 2017-03-25 13:02 | HHI.PR ---
Subjective Subjective Notes Resting in bed No complaints Objective Vitals/I&O Vital Signs Date Time Temp Pulse Resp B/P Pulse Ox O2 Delivery O2 Flow Rate FiO2 03/25/17 12:00 92 03/25/17 12:00 100 Nasal Cannula 2.00 03/25/17 12:00 98.1 26 168/67 03/24/17 17:54 21 Labs Laboratory Tests Test 03/24/17 03/24/17 03/24/17 03/25/17 15:23 15:27 16:44 02:00 White Blood Count 6.9 Red Blood Count 2.88 Hemoglobin 8.3 Hematocrit 25.0 Mean Corpuscular Volume 86.6 Mean Corpuscular Hemoglobin 28.8 Mean Corpuscular Hemoglobin 33.3 Concent Red Cell Distribution Width 16.9 Platelet Count 201 Mean Platelet Volume 8.0 Neutrophils (%) (Auto) 54.0 Lymphocytes (%) (Auto) 26.7 Monocytes (%) (Auto) 14.1 Eosinophils (%) (Auto) 4.4 Basophils (%) (Auto) 0.8 Neutrophils # (Auto) 3.7 Lymphocytes # (Auto) 1.8 Monocytes # (Auto) 1.0 Eosinophils # (Auto) 0.3 Basophils # (Auto) 0.1 CBC Comment DIFF FINAL Differential Comment Prothrombin Time 76.2 Prothromb Time International 6.4 Ratio Blood Bank Comment Blood Type O POSITIVE Antibody Screen NEGATIVE Crossmatch Leukocyte-Reduced Red Blood Cells Test 03/25/17 09:56 Nasal Screen MRSA (PCR) MRSA NOT DETECTED Date/Time Procedure Status Source Growth 03/21/17 05:44 Aerobic Blood Culture - Preliminary Resulted Blood Peripheral NO GROWTH IN 4 DAYS 03/21/17 05:44 Anaerobic Blood Culture - Preliminary Resulted Blood Peripheral NO GROWTH IN 4 DAYS Radiology Last Impressions Chest X-Ray 03/20/172245 Signed Impressions: Service Date/Time: Monday, March 20, 2017 23:10 - CONCLUSION: Mild compensated cardiomegaly and mild, chronic appearing interstitial lung disease. Umair Lama MD Abdomen/Pelvis CT 03/20/172245 Signed Impressions: Service Date/Time: February 00:04 - CONCLUSION: 1. Left inguinal hernia containing a short segment of small bowel and with associated acute obstruction. 2. Trace mesenteric edema/ascites, presumably reactive. 3. Fatty liver. 4. Panchamber enlargement of the heart. 5. Small pleural effusion of the visualized right lung base of uncertain age and etiology. 6. 2 cm benign cyst of the left kidney. Umair Lama MD Cardiovascular: Regular Lungs: Clear Abdomen: Non-distended, Non-tender Extremities: No edema Narrative Exam LEFT groin: dressing in place; large hematoma ---marking made by RN reviewed--- increased in size from 1599 to 2034; non tender A/P Assessment and Plan 86 year old female POD4 incarcerated LIH repair -NPO -S/p infusion of FFP and PRBCs -Repeat labs -Hold Coumadin -Dr. Shepherd to see patient today to evaluate if hematoma requires operative intervention -Discussed plan with MARIANA Estrada Attending Statement Large L groin mass c/w hematoma. D/W pt and son and daughter options of observation vs evacuation, they wished to proceed with evacuation of hematoma. We discussed risks and drain placement. They want to facilitate getting her home to [place]. Plan to OR for evacuation of L groin hematoma. The exam, history, and the medical decision-making described in the above note were completed with the assistance of the mid-level provider. I reviewed and agree with the findings presented. I attest that I had a [id number] encounter with the patient on the same day, and personally performed and documented my assessment and findings in the medical record. Juliette Gil Mar 25, 2017 13:02 Yury Shepherd MD Mar 26, 2017 07:30
[2017-03-25] MEDS: MAGNESIUM HYDROXIDE SUSP 30 ML CUP PO PRN (14:08)
[2017-03-25 14:42] LABS: INTERNATIONAL NORMALIZED RATIO 1.7 RATIO; PROTHROMBIN TIME - PATIENT 19.4 SEC (9.8-11.6)
[2017-03-25] MEDS ORDERED: BUPIVACAINE/EPINEPHRINE 0.5% PF 10 ML VIAL ONE (15:55)
[2017-03-25] MEDS ORDERED: ceFAZolin INJ 1,000 MG VIAL IV ONE (16:55)
[2017-03-25] MEDS ORDERED: SUGAMMADEX SODIUM 200 MG/2 ML VIAL IV PUSH ONE ×2 (17:05)
--- NOTE | 2017-03-25 17:29 | PD.OP ---
Operative Report Date of Surgery: Mar 25, 2017 Preoperative Diagnosis: hematoma L groin Postoperative Diagnosis: same Procedure: evacuation of L groin hematoma Anesthesia: general Surgeon: Yury Shepherd [employer] Dean(s): Oriana Operation and Findings: large clot, minimal ooze. Ward and 10 malagasy drain placed. Yury Shepherd MD Mar 25, 2017 17:29
[2017-03-25] MEDS ORDERED: DO NOT ADM ANY ANTICOAGULANT DRUGS PRN (20:15)
[2017-03-25 21:26] LABS: AUTOMATED NEUTROPHIL # 5.6 TH/MM3 (1.8-7.7); BASOPHIL # 0.1 TH/MM3 (0-0.2); BASOPHIL % 0.8 % (0.0-2.0); EOSINOPHIL # 0.1 TH/MM3 (0-0.4); EOSINOPHIL % 1.4 % (0.0-4.0); HEMATOCRIT 26.4 % (35.0-46.0); HEMO FLAGS DIFF FINAL; LYMPH % 13.6 % (9.0-44.0); MEAN CELL VOLUME 84.6 FL (80.0-100.0); MEAN CORPUSCULAR HEMOGLOBIN 28.5 PG (27.0-34.0); MEAN CORPUSCULAR HGB CONC 33.7 % (32.0-36.0); MONO % 8.9 % (0.0-8.0); NEUT % 75.3 % (16.0-70.0); PLATELET COUNT 174 TH/MM3 (150-450); RED BLOOD COUNT 3.12 MIL/MM3 (4.00-5.30); RED CELL DISTRIBUTION WIDTH 16.3 % (11.6-17.2); WHITE BLOOD COUNT 7.4 TH/MM3 (4.0-11.0)
[2017-03-25] MEDS: ATORVASTATIN 80 MG TAB PO SCH (21:45)
[2017-03-26] VITALS (11 sets, daily range): BP systolic 105–161; BP diastolic 58–83; PULSE 66–120; RESP 16–26; TEMP 97.3–98.4; O2SAT 91–99
[2017-03-26] MEDS: MAGNESIUM HYDROXIDE SUSP 30 ML CUP PO PRN (04:16)
[2017-03-26] MEDS: ACETAMINOPHEN 1000 MG/100 ML VIAL IV SCH ×4 (04:16→22:00)
[2017-03-26 04:48] LABS: HEMATOCRIT 27.2 % (35.0-46.0); MEAN CORPUSCULAR HEMOGLOBIN 28.3 PG (27.0-34.0); MEAN CORPUSCULAR HGB CONC 32.9 % (32.0-36.0); PLATELET COUNT 163 TH/MM3 (150-450); RED BLOOD COUNT 3.16 MIL/MM3 (4.00-5.30); RED CELL DISTRIBUTION WIDTH 16.2 % (11.6-17.2); REVIEW FLAG FINAL; WHITE BLOOD COUNT 6.6 TH/MM3 (4.0-11.0)
[2017-03-26 04:59] LABS: INTERNATIONAL NORMALIZED RATIO 1.4 RATIO; PROTHROMBIN TIME - PATIENT 15.9 SEC (9.8-11.6)
[2017-03-26 05:05] LABS: BICARBONATE 33.6 MEQ/L (21.0-32.0); MAGNESIUM 2.4 MG/DL (1.5-2.5); POTASSIUM 4.5 MEQ/L (3.5-5.1)
--- NOTE | 2017-03-26 07:42 | HHI.PR ---
Subjective Subjective Notes Pt feels really good, better than she has in a long time. Objective Vitals/I&O Vital Signs Date Time Temp Pulse Resp B/P Pulse Ox O2 Delivery O2 Flow Rate FiO2 03/26/17 06:00 83 03/26/17 04:00 98.1 26 119/83 99 03/26/17 04:00 Nasal Cannula 2.00 03/24/17 17:54 21 Labs Laboratory Tests Test 03/25/17 03/25/17 03/25/17 03/26/17 09:56 14:03 21:13 04:15 Nasal Screen MRSA (PCR) MRSA NOT DETECTED Prothrombin Time 19.4 15.9 Prothromb Time International 1.7 1.4 Ratio White Blood Count 7.4 6.6 Red Blood Count 3.12 3.16 Hemoglobin 8.9 9.0 Hematocrit 26.4 27.2 Mean Corpuscular Volume 84.6 86.0 Mean Corpuscular Hemoglobin 28.5 28.3 Mean Corpuscular Hemoglobin 33.7 32.9 Concent Red Cell Distribution Width 16.3 16.2 Platelet Count 174 163 Mean Platelet Volume 7.7 8.0 Neutrophils (%) (Auto) 75.3 Lymphocytes (%) (Auto) 13.6 Monocytes (%) (Auto) 8.9 Eosinophils (%) (Auto) 1.4 Basophils (%) (Auto) 0.8 Neutrophils # (Auto) 5.6 Lymphocytes # (Auto) 1.0 Monocytes # (Auto) 0.7 Eosinophils # (Auto) 0.1 Basophils # (Auto) 0.1 CBC Comment DIFF FINAL Differential Comment Sodium Level 143 Potassium Level 4.5 Chloride Level 105 Carbon Dioxide Level 33.6 Anion Gap 4 Blood Urea Nitrogen 14 Creatinine 0.52 Estimat Glomerular Filtration 112 Rate Random Glucose 105 Calcium Level 8.4 Magnesium Level 2.4 Radiology Last Impressions Chest X-Ray 03/20/172245 Signed Impressions: Service Date/Time: Monday, March 20, 2017 23:10 - CONCLUSION: Mild compensated cardiomegaly and mild, chronic appearing interstitial lung disease. Umair Lama MD Abdomen/Pelvis CT 03/20/172245 Signed Impressions: Service Date/Time: February 00:04 - CONCLUSION: 1. Left inguinal hernia containing a short segment of small bowel and with associated acute obstruction. 2. Trace mesenteric edema/ascites, presumably reactive. 3. Fatty liver. 4. Panchamber enlargement of the heart. 5. Small pleural effusion of the visualized right lung base of uncertain age and etiology. 6. 2 cm benign cyst of the left kidney. Umair Lama MD Abdomen: Non-distended, Non-tender, Other (Dressing in L groin, dry and intact. Drain with minimal old bloody drainage.), BS normal Extremities: No edema, Perfused, SCD's on A/P Assessment and Plan POD 1 s/p evacuation of hematoma L groin. Doing well. Stable Hgb, INR 1.4. Plan transfer to [facility], telemetry. Walk robison, PT consult placed. D/W pt , DC when wound healing well without further complication, pt eating and drinking and having BMs. Hopeful for DC in 1-3 days. Yury Shepherd MD Mar 26, 2017 07:42
[2017-03-26] MEDS: BISACODYL 10 MG SUPP RECTAL SCH ×2 (09:00→09:27)
[2017-03-26] MEDS: SODIUM CHLORIDE 0.9% FLUSH 10 ML FLUSH IV FLUSH SCH ×2 (09:00→21:00)
[2017-03-26] MEDS: LACTATED RINGER'S 1000 ML INJ 1,000 ML IV SCH ×2 (09:27→21:19)
[2017-03-26] MEDS: DOCUSATE SODIUM 100 MG CAP PO SCH ×2 (09:27→21:00)
[2017-03-26] MEDS: ASPIRIN 81 MG CHEW TAB CHEW SCH (09:27)
[2017-03-26] MEDS: ATORVASTATIN 80 MG TAB PO SCH (23:00)
[2017-03-27] VITALS (7 sets, daily range): BP systolic 97–131; BP diastolic 53–77; PULSE 68–113; RESP 15–20; TEMP 96.5–98.7; O2SAT 90–96
[2017-03-27] MEDS: ACETAMINOPHEN 1000 MG/100 ML VIAL IV SCH ×4 (04:00→21:30)
--- NOTE | 2017-03-27 08:02 | HHI.PR ---
Subjective Subjective Notes Doing well, feels swollen, has not received her normal lasix, it was held over the weekend, while she had developed the hematoma. she has had 3 BMs. She wants to eat regular food, for some reason, her diet was entered as soft. Objective Vitals/I&O Vital Signs Date Time Temp Pulse Resp B/P Pulse Ox O2 Delivery O2 Flow Rate FiO2 03/27/17 04:00 97.6 109 20 123/73 94 03/26/17 16:31 Nasal Cannula 2.00 03/24/17 17:54 21 Radiology Last Impressions Chest X-Ray 03/20/172245 Signed Impressions: Service Date/Time: Monday, March 20, 2017 23:10 - CONCLUSION: Mild compensated cardiomegaly and mild, chronic appearing interstitial lung disease. Umair Lama MD Abdomen/Pelvis CT 03/20/172245 Signed Impressions: Service Date/Time: February 00:04 - CONCLUSION: 1. Left inguinal hernia containing a short segment of small bowel and with associated acute obstruction. 2. Trace mesenteric edema/ascites, presumably reactive. 3. Fatty liver. 4. Panchamber enlargement of the heart. 5. Small pleural effusion of the visualized right lung base of uncertain age and etiology. 6. 2 cm benign cyst of the left kidney. Umair Lama MD Lungs: Clear, Other (No decreased BS anterior or posterior.) Abdomen: Non-distended, Non-tender, Other (Large area of ecchymosis LLQ and groin as expected. Dressing dry. drain with minimal old blood.) Extremities: Perfused, Other (mild edema) A/P Assessment and Plan POD 2 s/p evacuation of hematoma L groin, s/p open repair incarcerated LIH with SBO, repaired and resolved. Improved. Wants regular food and regular meds, ordered, still holding coumadin, plan restart lower dose tomorrow.. Did well with PT, I believe their notes recommend Outpatient PT. Anticipate DC tomorrow. Plans being made. Yury Shepherd MD Mar 27, 2017 08:02
[2017-03-27] MEDS: METOPROLOL TARTRATE 50 MG TAB PO SCH ×2 (08:58→21:30)
[2017-03-27] MEDS: LISINOPRIL 5 MG TAB PO SCH (08:59)
[2017-03-27] MEDS: DOCUSATE SODIUM 100 MG CAP PO SCH ×2 (08:59→21:00)
[2017-03-27] MEDS: FUROSEMIDE 20 MG TAB PO SCH (08:59)
[2017-03-27] MEDS: BISACODYL 10 MG SUPP RECTAL SCH (09:00)
[2017-03-27] MEDS: SODIUM CHLORIDE 0.9% FLUSH 10 ML FLUSH IV FLUSH SCH ×2 (09:00→21:00)
[2017-03-27] MEDS: ASPIRIN 81 MG CHEW TAB CHEW SCH (09:00)
[2017-03-27] MEDS: LACTATED RINGER'S 1000 ML INJ 1,000 ML IV SCH ×2 (09:07→21:25)
--- NOTE | 2017-03-27 15:50 | HHI.FF ---
Face to Face Verification Diagnosis: (1) Incarcerated left inguinal hernia (2) Atrial fibrillation, chronic Physical Therapy Order: Evaluate and Treat, Improve ambulation, Strength and gait training Instructions: No restrictions Home Health Nursing Order: Wound care and dressing changes Nursing assessment with vital signs Instructions: Monitor LEFT groin wound I have seen patient Isidra Collazo on 03/27/17. My clinical findings support the need for the requested home health care services because: Limited ability to care for self High risk of falls I certify that my clinical findings support that this patient is homebound because: Post-op weakness Juliette Gil [facility] Mar 27, 2017 15:50
[2017-03-27] MEDS: ATORVASTATIN 80 MG TAB PO SCH (21:29)
--- NOTE | 2017-03-27 22:31 | MP ---
cc: REMA SHARMA MD DATE OF SURGERY 03/25/17 PREOPERATIVE DIAGNOSIS Hematoma left groin. POSTOPERATIVE DIAGNOSIS Hematoma left groin. PROCEDURE Evacuation left groin hematoma. SURGEON Dr. Alvaro Sharma ANESTHESIA General INDICATIONS This is a very pleasant 86-year old woman who last morning had an open repair of an incarcerated left inguinal hernia. She was doing extremely well postoperatively until yesterday when she began experiencing increasing swelling and discomfort in the left groin consistent with hematoma. She was found to be supratherapeutic with an INR of 6.4. Her coumadin was stopped. She was given fresh frozen plasma, 1 unit of blood and vitamin K. Her INR is 1.7. Options for evacuation versus observation, nonoperative care were discussed with the patient and her family. They wished to proceed with evacuation of the hematoma. INTRAOPERATIVE FINDINGS Large clot in the subcutaneous space between the subcutaneous fatty tissue and the abdominal wall. No evidence of recurrent hernia. Minimal ooze. Ward and a 10-Salvadorean strain were placed. PROCEDURE IN DETAIL The patient was identified as Isidra Collazo, taken to the operating room, placed in supine position. Sequential compression devices were placed on bilateral lower extremities. Following induction of adequate general endotracheal anesthesia, the patient's left groin was prepped and draped in usual sterile fashion with Betadine. A time-out procedure was performed. Following completion of time-out procedure to everyone's satisfaction within the room, the left groin incision was opened with the Chaudhry scissors, dividing the previously placed subcuticular suture as well as the single suture in Halle's fascia. This allowed for access to a large clot. The clot was mobilized from the surrounding subcutaneous space using the surgeon's finger and several hundred ccs of clotted blood was removed. The wound was copiously irrigated with saline. A small ooze inferiorly was controlled with electrocautery. There was no named vessel bleeding. Following complete removal of the organized clot and irrigation of the wound. The wound was dried and [address] were place into that space. Pressure was held for several minutes. Through a separate stab incision left lateral groin, a 10-Salvadorean Kory drain was placed into the space where the hematoma was. It was customized to appropriate size, held in position to the level of skin with a 3-0 nylon drain stitch. There was some ooze from that location which was controlled with direct pressure. The wound was then approximated with interrupted 2-0 Vicryl sutures and interrupted inverted 4-0 Monocryl subcuticular sutures. Dressing was applied with 4x4s folded and wide perforated cloth tape. The patient tolerated the procedure without apparent complication. Sponge, needle and instrument counts were correct at the end of the case. MD CLAUDIA Larsen/ /5:36 PM /10:22 PM
[2017-03-28] VITALS: BP 119/74; PULSE 96; RESP 20; TEMP 97.9; O2SAT 95
[2017-03-28 04:00] VITALS: BP 126/71; PULSE 96; RESP 20; TEMP 97.4; O2SAT 94
[2017-03-28] MEDS: ACETAMINOPHEN 1000 MG/100 ML VIAL IV SCH ×2 (04:00→08:30)
[2017-03-28] MEDS ORDERED: WARF-18 PO (07:54)
--- NOTE | 2017-03-28 07:58 | HHI.DS ---
Discharge Summary Admission Date Mar 21, 2017 at 04:45 Discharge Date: Mar 28, 2017 Admitting Diagnosis Incarcerated L inguinal hernia; coumadin therapy; h/o afib Procedures open repair incarcerated LIH evacuation L groin hematoma Brief History 86 year old woman with acute onset bulge, pain in L groin, N/V. Workup shows incarcerated LIH. Anticoagulated for Afib with warfarin. CBC/BMP: 03/26/17 0415 03/26/17 0415 Significant Findings Laboratory Tests Test 03/25/17 03/25/17 03/26/17 14:03 21:13 04:15 Prothrombin Time 19.4 SEC 15.9 SEC (9.8-11.6) (9.8-11.6) Red Blood Count 3.12 MIL/MM3 3.16 MIL/MM3 (4.00-5.30) (4.00-5.30) Hemoglobin 8.9 GM/DL 9.0 GM/DL (11.6-15.3) (11.6-15.3) Hematocrit 26.4 % 27.2 % (35.0-46.0) (35.0-46.0) Neutrophils (%) (Auto) 75.3 % (16.0-70.0) Monocytes (%) (Auto) 8.9 % (0.0-8.0) Carbon Dioxide Level 33.6 MEQ/L (21.0-32.0) Anion Gap 4 MEQ/L (5-15) Calcium Level 8.4 MG/DL (8.5-10.1) PE at Discharge L groin incision healing well without drainage or erythema. Drain removed. Dry dressing applied. Large area of residual ecchymosis present. Hospital Course Pt admitted through Ed for incarcerated LIH, HHPO. Taken urgently to surgery after administration of FFP. Postop did well, until she bled into L groin wound related to hypertherapeutic INR greater than 6. Pt given FFP, pRBC and taken to surgery for hematoma evacuation. She has now recovered well, been kept off of warfarin. She is eating and drinking, voiding and having BMs. She desires DC. Pt Condition on Discharge: Good Discharge Disposition: Disch w/ Home Health Serv Discharge Instructions DIET: Follow Instructions for: As Tolerated, No Restrictions Activities you can perform: Shower Only-No Bath Activities to Avoid: Strenuous Activity Ramshaw,Yury G. MD Mar 28, 2017 07:58
[2017-03-28 08:00] VITALS: BP 147/76; PULSE 99; RESP 16; TEMP 97.2; O2SAT 96
[2017-03-28] MEDS: BISACODYL 10 MG SUPP RECTAL SCH (08:30)
[2017-03-28] MEDS: LACTATED RINGER'S 1000 ML INJ 1,000 ML IV SCH (08:33)
[2017-03-28] MEDS: DOCUSATE SODIUM 100 MG CAP PO SCH (08:33)
[2017-03-28] MEDS: ASPIRIN 81 MG CHEW TAB CHEW SCH (08:33)
[2017-03-28] MEDS: FUROSEMIDE 20 MG TAB PO SCH (08:34)
[2017-03-28] MEDS: METOPROLOL TARTRATE 50 MG TAB PO SCH (08:34)
[2017-03-28] MEDS: SODIUM CHLORIDE 0.9% FLUSH 10 ML FLUSH IV FLUSH SCH (08:34)
[2017-03-28] MEDS: LISINOPRIL 5 MG TAB PO SCH (08:34)
[2017-03-28 11:35] VITALS: O2SAT 96
[2017-03-28 12:00] VITALS: BP 104/61; PULSE 85; RESP 16; TEMP 97.9; O2SAT 95
== END 2017-03-28 14:24 | disposition home health service (06) | DRG 351 ==
LOC: PHED 21:57 → PHEDA 03-21 04:45 → N06B 03-21 07:57 → N03B 03-24 23:12 → N07B 03-26 08:27
PROVIDERS: ADMIT Surgery Trauma Surgery; ATTEND Surgery Trauma Surgery
PROC: 0HBCXZZ Excision of Left Upper Arm Skin, External Approach (ICD-10-PCS; 2017-03-21)
PROC: 30233N1 Transfusion of Nonautologous Red Blood Cells into Peripheral Vein, Percutaneous Approach (ICD-10-PCS; 2017-03-21)
PROC: 30233K1 Transfusion of Nonautologous Frozen Plasma into Peripheral Vein, Percutaneous Approach (ICD-10-PCS; 2017-03-21)
PROC: 0YQ60ZZ Repair Left Inguinal Region, Open Approach (ICD-10-PCS; principal; 2017-03-21 07:32)
PROC: 0W3F0ZZ Control Bleeding in Abdominal Wall, Open Approach (ICD-10-PCS; 2017-03-25)
PROC: 0W9J0ZZ Drainage of Pelvic Cavity, Open Approach (ICD-10-PCS; 2017-03-25)
DX: K40.30 Unilateral inguinal hernia, with obstruction, without gangrene, not specified as recurrent (principal); L76.32 Postprocedural hematoma of skin and subcutaneous tissue following other procedure; I48.2 Chronic atrial fibrillation; K76.0 Fatty (change of) liver, not elsewhere classified; N28.1 Cyst of kidney, acquired; Z79.01 Long term (current) use of anticoagulants; I25.10 Atherosclerotic heart disease of native coronary artery without angina pectoris; I25.2 Old myocardial infarction; E78.5 Hyperlipidemia, unspecified; Z95.5 Presence of coronary angioplasty implant and graft; I10 Essential (primary) hypertension; E78.00 Pure hypercholesterolemia, unspecified; Z87.11 Personal history of peptic ulcer disease; L85.8 Other specified epidermal thickening; I51.7 Cardiomegaly; Y83.8 Other surgical procedures as the cause of abnormal reaction of the patient, or of later complication, without mention of misadventure at the time of the procedure; Y92.239 Unspecified place in hospital as the place of occurrence of the external cause
CPT/HCPCS: 36430; 71010; 74177; 80048; 80053; 81001; 83690; 83735; 85025; 85027; 85610; 86850; 86900; 86901; 86920; 86927; 87040; 87641; 88305; 93005; 94150; 96374; 96375; J0131; J0690; J1650; J1940; J2060; J2270; J2370; J2405; J2710; J3010; J3430; J7040; J7120; P9016; P9017; Q9967